=== PATIENT | male | born 1995 | race Caucasian/White ===

== ENCOUNTER 2016-12-20 00:09 | Emergency (ER) | payer OTHER | END 2016-12-21 02:40 | disposition home or self-care (01) | LOC: ER1 00:09 | DX: S06.0X0A Concussion without loss of consciousness, initial encounter (principal); W21.89XA Striking against or struck by other sports equipment, initial encounter; Y92.830 Public park as the place of occurrence of the external cause | CPT/HCPCS: 70450; 99283 ==